=== PATIENT | male | born 1950 | race Caucasian/White ===

== ENCOUNTER 2018-05-15 16:16 | Emergency (ER) | payer MEDICARE, OTHER ==
[~2018-05-15] VITALS: Ht 190.5 cm; Wt 133.4 kg
[~2018-05-15 16:16] MED LIST: CRESTOR20 MG PO; LASIX20 MG PO; PEPCID20 MG PO; PLAVIX75 MG PO; PRINIVIL5 MG PO; SYNTHROID100 MCG PO
--- OUTSIDE RECORDS SUMMARY | 2018-05-15 16:19 | XMS REPORT | Clinical Summary ---
Author Author TAYLOR RadiantBlue TechnologiesSt. Luke'S Wood River Medical CenterTaxifySt. Joseph Medical Center Organization [facility] Address Unknown Phone Unavailable Care Team Providers Care Mechanical Design Drafter Name Role Phone Juancarlos Montiel MD PCP Allergies Comments Active Allergy Reactions Severity Noted Date suicidal thoughts Amitriptyline Other (See Medium 10/04/2017 Comments) Systemic reaction was sent to the ER Atorvastatin Other (See Medium 01/28/2018 Comments) Medications End Date Status Medication Sig Dispensed Refills Start Date Active metoprolol (TOPROL-XL) Take 100 mg 0 100 MG 24 hr tablet by mouth 2 (two) times daily . Active pantoprazole (PROTONIX) Take 40 mg by 0 40 MG tablet mouth daily. Active famotidine (PEPCID) 20 MG Take 20 mg by 0 tablet mouth 2 (two) times daily. Active rosuvastatin (CRESTOR) 20 Take 20 mg by 0 MG tablet mouth 4 (four) times a week . Active furosemide (LASIX) 20 MG Take 20 mg by 0 tablet mouth daily. Active levothyroxine (SYNTHROID, Take 100 mcg 0 LEVOTHROID) 100 MCG by mouth tablet daily. Active testosterone cypionate Inject 0 (DEPOTESTOTERONE intramuscular CYPIONATE) 100 mg/mL ly every 14 injection (fourteen) days. Active valsartan (DIOVAN) 320 MG Take 320 mg 0 tabletIndications: in by mouth afternoon daily. Active metFORMIN (GLUCOPHAGE) Take 1,000 mg 0 500 MG tablet by mouth daily with dinner . Active gabapentin (NEURONTIN) Take 300 mg 0 300 MG capsule by mouth every evening . Active albuterol (PROVENTIL) 2.5 Take 2.5 mg 0 mg /3 mL (0.083 %) by nebulizer solution nebulization every 6 (six) hours as needed for Wheezing. Active albuterol HFA (VENTOLIN Inhale 1 puff 0 HFA) 90 mcg/actuation by mouth via inhaler inhaler every 6 (six) hours as needed for Wheezing. Active cetirizine (ZYRTEC) 10 MG Take 10 mg by 0 tablet mouth as needed . Active fluticasone (FLONASE) 50 1 spray by 0 mcg/actuation nasal spray Nasal route as needed for Rhinitis. Active tamsulosin (FLOMAX) 0.4 Take 0.4 mg 0 mg Cap 24 hr capsule by mouth every other day. Active multivitamin per tablet Take 1 tablet 0 by mouth daily. Active melatonin 5 mg Tab tablet Take 5 mg by 0 mouth every night as needed . Active aspirin 81 MG EC tablet May resume 0 Wednesday05/17/18. Active clopidogrel (PLAVIX) 75 May resume 0 mg tablet Wednesday05/17/18. 05/21/2018 Active docusate sodium (COLACE) Take 1 20 capsule 0 100 MG capsule capsule (100 9 mg total) by mouth 2 (two) times daily as needed for Constipation for up to 10 days. 05/18/2018 Active butalbital-acetaminophen- Take 1 tablet 28 tablet 0 caffeine (FIORICET, by mouth 9 ESGIC) 50-325-40 mg per every 6 (six) tablet hours as needed for Headaches for up to 7 days. 05/18/2018 Active methocarbamol (ROBAXIN) Take 1 tablet 21 tablet 0 500 MG tablet (500 mg 9 total) by mouth 3 (three) times daily for 7 days. 01/28/2018 Discontinued lisinopril Take 20 mg by 0 (PRINIVIL,ZESTRIL) 20 MG mouth daily. tablet 02/08/2018 Discontinued clopidogrel (PLAVIX) 75 Take 75 mg by 0 mg tabletIndications: QOD mouth as only directed . 02/08/2018 Discontinued aspirin 81 MG EC tablet Take 81 mg by 0 mouth daily. 01/28/2018 Discontinued traMADol-acetaminophen Take 1 tablet 0 (ULTRACET) 37.5-325 mg by mouth per tablet every 6 (six) hours as needed. 02/18/2018 acetaminophen-codeine Take 2 60 tablet 0 (TYLENOL #3) 300-30 mg tablets by 9 per tablet mouth every 6 (six) hours as needed for up to 10 days. Max Daily Amount: 8 tablets 02/18/2018 docusate sodium (COLACE) Take 1 20 capsule 0 100 MG capsule capsule (100 9 mg total) by mouth 2 (two) times daily for 10 days. 02/18/2018 methocarbamol (ROBAXIN) Take 1 tablet 40 tablet 0 500 MG tablet (500 mg 9 total) by mouth 4 (four) times daily for 10 days. 05/10/2018 Discontinued metoprolol (TOPROL-XL) Take 100 mg 0 200 MG 24 hr tablet by mouth 2 (two) times daily Takes 0.5 tab BID . 05/11/2018 Discontinued clopidogrel (PLAVIX) 75 Take 75 mg by 0 mg tablet mouth daily. 05/11/2018 Discontinued aspirin 81 MG EC tablet Take 81 mg by 0 mouth daily. 05/11/2018 Discontinued oxyCODONE-acetaminophen Take 1 tablet 30 tablet 0 (PERCOCET) 10-325 mg per by mouth 9 tablet every 6 (six) hours as needed for up to 10 days. Max Daily Amount: 4 tablets Active Problems Problem Noted Date Lumbar radiculopathy 02/07/2018 Lumbar stenosis 02/07/2018 Resolved Problems Problem Noted Date Resolved Date Pre-op testing 05/10/2018 05/10/2018 Pre-op testing 02/07/2018 02/07/2018 Encounters Care Team Description Date Type Specialty 05/11/2018 Travel Colby Negro MD LAMINECTOMY,LUMBAR MIS 05/10/2018 Surgery Kristie Holcomb CRNA 05/10/2018 Anesthesia Event Colby Negro MD Pre-op testing 05/10/2018 [facility] General Internal Medicine - Encounter 05/12/2018 Colby Negro MD Resource, Oqmt Preadmit Phone 05/06/2018 Hospital Pre-Admission Testing Encounter Colby Negro MD Pre-op testing (Primary Dx) 05/05/2018 Orders Only Family Medicine 02/08/2018 Travel Colby Negro MD LAMINECTOMY,LUMBAR FACETECTOMY/ FORAMINOTOMY/ DECOMPRESSION 02/07/2018 Surgery Vesna Hood MD 02/07/2018 Anesthesia Event Colby Negro MD Pre-op testing 02/07/2018 Hospital General Internal Medicine - Encounter 02/08/2018 Essie, Oevon Preadmit Phone 01/28/2018 Hospital Pre-Admission Testing Encounter Colby Negro MD Pre-op testing (Primary Dx) 01/28/2018 Orders Only Family Medicine after 05/14/2017 Social History Date Tobacco Use Types Packs/Day Years Used Never Smoker Smokeless Tobacco: Never Used Alcohol Use Drinks/Week oz/Week Comments No Sex Assigned at Date Recorded Not on file Industry Job Start Date Occupation Not on file Not on file Not on file Travel End Travel History Travel Start No recent travel history available. Last Filed Vital Signs Time Taken Vital Sign Reading 05/12/2018 8:06 AM CDT Blood Pressure 133/61 05/12/2018 8:06 AM CDT Pulse 69 05/12/2018 8:06 AM CDT Temperature 36.7 C (98.1 F) 05/12/2018 8:06 AM CDT Respiratory Rate 18 05/12/2018 8:06 AM CDT Oxygen Saturation 92% 05/11/2018 12:00 AM CDT Inhaled Oxygen 21% Concentration 05/10/2018 5:45 AM CDT Weight 138.7 kg (305 lb 12.5 oz) 05/10/2018 5:45 AM CDT Height 191.8 cm (6' 3.5") 05/10/2018 5:45 AM CDT Body Mass Index 37.72 Plan of Treatment Not on file Implants Device Identifier Shelf Expiration Date Model / Serial / Lot Implanted Type Area Manufactur er 04/25/2019 [id number] / / [id number] Flseal Vhsd Full Strlprep 10ml Cement/Jesus N/A: Spine CEDILLO:BIO [id number] - [id number] ler/Adhesi Lumbar SCI Implanted: Qty: 1 on 02/07/2018 by Colby Rivera MD Procedures Comments Procedure Name Priority Date/Time Associated Diagnosis TRANSFUSION SERVICE 05/11/2018 REPORT - SCAN 6:01 PM CDT CBC W/PLT COUNT & AUTO Routine 05/11/2018 DIFFERENTIAL 12:55 PM CDT BASIC METABOLIC PANEL (7) Routine 05/11/2018 12:55 PM CDT CBC W/PLT COUNT & AUTO Routine 05/11/2018 DIFFERENTIAL 12:55 PM CDT POCT-GLUCOSE METER Routine 05/10/2018 10:09 AM CDT FL DIRECTOR OF AGRONOMY IN OR 30 Routine 05/10/2018 MINUTE INCREMENTS 9:50 AM CDT FL DIRECTOR OF AGRONOMY IN OR 30 Routine 05/10/2018 MINUTE INCREMENTS 8:20 AM CDT PROCEDURE W/ 05/10/2018 Spinal stenosis of lumbar INTRAOPERATIVE 7:15 AM CDT region, unspecified NEUROMONITORING whether neurogenic claudication present Case Notes 2 HRS PER ADDY Special Needs (PRONE POSITION, C-ARM, NEURO-REVA TORING: EMG, MICROSCOPE , REG OR TABLE, SHANA FRAME, MEDTRONIC) PROCEDURE W/ C-ARM 05/10/2018 Spinal stenosis of lumbar 7:15 AM CDT region, unspecified whether neurogenic claudication present Case Notes 2 HRS PER ADDY Special Needs (PRONE POSITION, C-ARM, NEURO-REVA TORING: EMG, MICROSCOPE , REG OR TABLE, SHANA FRAME, MEDTRONIC) LAMINECTOMY,LUMBAR MIS 05/10/2018 Spinal stenosis of lumbar 7:15 AM CDT region, unspecified whether neurogenic claudication present Case Notes 2 HRS PER ADDY Special Needs (PRONE POSITION, C-ARM, NEURO-REVA TORING: EMG, MICROSCOPE , REG OR TABLE, SHANA FRAME, MEDTRONIC) TYPE AND SCREEN, Routine 05/10/2018 Pre-op testing AUTOMATED 6:13 AM CDT POCT-GLUCOSE METER Routine 05/10/2018 6:13 AM CDT RHYTHM STRIP - SCAN 03/01/2018 10:50 AM TRANSPORTATION SALES CONSULTANT TRANSFUSION SERVICE 02/08/2018 REPORT - SCAN 6:00 PM TRANSPORTATION SALES CONSULTANT POCT-GLUCOSE METER Routine 02/08/2018 7:24 AM TRANSPORTATION SALES CONSULTANT BASIC METABOLIC PANEL (7) Routine 02/08/2018 6:39 AM TRANSPORTATION SALES CONSULTANT (CELLAVISION MANUAL DIFF) Routine 02/08/2018 5:30 AM TRANSPORTATION SALES CONSULTANT CBC W/PLT COUNT & AUTO Routine 02/08/2018 DIFFERENTIAL 5:30 AM TRANSPORTATION SALES CONSULTANT CBC W/PLT COUNT & AUTO Routine 02/08/2018 DIFFERENTIAL 5:30 AM TRANSPORTATION SALES CONSULTANT POCT-GLUCOSE METER Routine 02/07/2018 4:40 PM TRANSPORTATION SALES CONSULTANT POCT-GLUCOSE METER Routine 02/07/2018 11:08 AM TRANSPORTATION SALES CONSULTANT NEEDLE EMG, 2 EXTREMITY Routine 02/07/2018 10:25 AM TRANSPORTATION SALES CONSULTANT XR SPINE LUMBAR 1 VIEW Routine 02/07/2018 9:03 AM TRANSPORTATION SALES CONSULTANT PROCEDURE W/ C-ARM 02/07/2018 Radiculopathy, lumbar 8:00 AM TRANSPORTATION SALES CONSULTANT region Spinal stenosis of lumbar region, unspecified whether neurogenic claudication present Special Needs (PRONE POSITION, NEURO MONITORING :EMG, C-ARM, MICROSCOPE , REGULAR OR TABLE, SHANA FRAME, AQUAMANTYS , BOVIES X2, MISONIX BONE SCAPEL)(DR Kashmir CARR TO ASSIST) PROCEDURE W/ 02/07/2018 Radiculopathy, lumbar INTRAOPERATIVE 8:00 AM TRANSPORTATION SALES CONSULTANT region NEUROMONITORING Spinal stenosis of lumbar region, unspecified whether neurogenic claudication present Special Needs (PRONE POSITION, NEURO MONITORING :EMG, C-ARM, MICROSCOPE , REGULAR OR TABLE, SHANA FRAME, AQUAMANTYS , BOVIES X2, MISONIX BONE SCAPEL)(DR Kashmir CARR TO ASSIST) LAMINECTOMY,LUMBAR 02/07/2018 Radiculopathy, lumbar FACETECTOMY/ 8:00 AM TRANSPORTATION SALES CONSULTANT region FORAMINOTOMY/ Spinal stenosis of lumbar DECOMPRESSION region, unspecified whether neurogenic claudication present Special Needs (PRONE POSITION, NEURO MONITORING :EMG, C-ARM, MICROSCOPE , REGULAR OR TABLE, SHANA FRAME, AQUAMANTYS , BOVIES X2, MISONIX BONE SCAPEL)(DR Kashmir CARR TO ASSIST) POCT-GLUCOSE METER Routine 02/07/2018 7:17 AM TRANSPORTATION SALES CONSULTANT TYPE AND SCREEN, Routine 02/07/2018 Pre-op testing AUTOMATED 7:14 AM TRANSPORTATION SALES CONSULTANT after 05/14/2017 Results * TRANSFUSION SERVICE REPORT - SCAN (05/11/2018 6:01 PM CDT) Only the most recent of 2 results within the time period is included. Narrative Performed At * CBC with platelet count + automated diff (05/11/2018 12:55 PM CDT) Only the most recent of 2 results within the time period is included. WBC 14.0 (H) 3.5 - 10.5 K/L [facility] RBC 5.12 4.63 - 6.08 M/L [facility] Hemoglobin 12.9 (L) 13.7 - 17.5 GM/DL [facility] Hematocrit 42.3 40.1 - 51.0 % [facility] MCV 82.6 79.0 - 92.2 fL [facility] MCH 25.2 (L) 25.7 - 32.2 pg [facility] MCHC 30.5 (L) 32.3 - 36.5 GM/DL [facility] RDW 16.1 (H) 11.6 - 14.4 % [facility] Platelets 235 150 - 450 K/CU MM [facility] MPV 9.5 9.4 - 12.4 fL [facility] nRBC 0 0 - 0 /100 WBC [facility] % Neutros 70 % [facility] % Lymphs 11 % [facility] % Monos 19 % [facility] % Eos 1 % [facility] % Baso 0 % [facility] # Neutros 9.75 (H) 1.78 - 5.38 K/L [facility] # Lymphs 1.49 1.32 - 3.57 K/L [facility] # Monos 2.59 (H) 0.30 - 0.82 K/L [facility] # Eos 0.08 0.04 - 0.54 K/L [facility] # Baso 0.05 0.01 - 0.08 K/L [facility] Immature 0 0 - 1 % [facility] Granulocytes-Relative [facility] Specimen Blood - Arm, Right Performing Organization Address City/State/Zipcode Phone Number [facility] [address] [place] [address] [facility] * Basic Metabolic Panel (05/11/2018 12:55 PM CDT) Only the most recent of 2 results within the time period is included. Sodium 136 136 - 145 meq/L [facility] Potassium 4.4 3.5 - 5.1 meq/L [facility] Chloride 103 98 - 107 meq/L [facility] CO2 26 22 - 29 meq/L [facility] BUN 16 7 - 21 mg/dL [facility] Creatinine 1.12 0.57 - 1.25 mg/dL [facility] Glucose 157 (H) 70 - 105 mg/dL [facility] Calcium 9.1 8.4 - 10.2 mg/dL [facility] EGFR 65Comment: ESTIMATED GFR IS mL/min/1.73 sq m [facility] NOT ACCURATE CREATININE [facility] CLEARANCE IN PREDICTING GLOMERULAR FILTRATION RATE. ESTIMATED GFR IS NOT APPLICABLE FOR DIALYSIS PATIENTS. Specimen Blood - Arm, Right Performing Organization Address [facility] Phone Number [facility] [address] [place] [address] [facility] * POC-Glucose meter (05/10/2018 10:09 AM CDT) Only the most recent of 6 results within the time period is included. POC-Glucose Meter 184 (H)Comment: TESTED AT 70 - 110 mg/dL [facility] [address] [place] [id number] Specimen Blood Performing Organization Address City/State/Zipcode Phone Number [facility] [address] [address] [facility] * [place] radial drill operator for plastic in or 30 minute increments (05/10/2018 9:50 AM CDT) Only the most recent of 2 results within the time period is included. Narrative Performed At FINAL REPORT GE [facility] Fluoroscopic spot imaging was performed at the time of the procedure by the ordering service. This examination is nondiagnostic. Fluoroscopy was not performed by the undersigned, and the radiologist was not present at the time of examination. Interpretation of the images was not requested. Total fluoroscopy time: 4.7 seconds Total number of films: 2 Please refer to the referring physician's procedure report for complete detail. Signed: Zacarias Blanco MD Report Verified Date/Time:05/10/2018 12:40:24 Reading Location: [address] Consult Reading Room Procedure Note Interface, External Ris In - 05/10/2018 12:42 PM CDT FINAL REPORT Fluoroscopic spot imaging was performed at the time of the procedure by the ordering service. This examination is nondiagnostic. Fluoroscopy was not performed by the undersigned, and the radiologist was not present at the time of examination. Interpretation of the images was not requested. Total fluoroscopy time: 4.7 seconds Total number of films: 2 Please refer to the referring physician's procedure report for complete detail. Signed: Zacarias Blanco MD Report Verified Date/Time: 05/10/2018 12:40:24 Reading Location: [address] Consult Reading Room Performing Organization Address City/State/Zipcode Phone Number RIS * Type and screen, automated (05/10/2018 6:13 AM CDT) Only the most recent of 2 results within the time period is included. ABO/RH AUTOMATED (BEAKER) A POSITIVE [facility] Ab Scrn NEGATIVE [facility] Specimen Blood Performing Organization Address City/[facility]/Zipcode Phone Number [address] [address] [facility] * RHYTHM STRIP - SCAN (03/01/2018 10:50 AM TRANSPORTATION SALES CONSULTANT) Narrative Performed At * Manual Differential (02/08/2018 5:30 AM TRANSPORTATION SALES CONSULTANT) % Neutros 68 % [facility] % Lymphs 6 % [facility] % Monos 13 % [facility] % Eos 1 % [facility] % Bands 12 (H) 0 - 10 % [facility] # Neutros 7.89 (H) 1.78 - 5.38 K/ul [facility] # Lymphs 0.70 (L) 1.32 - 3.57 K/ul [facility] # Monos 1.51 (H) 0.30 - 0.82 K/uL [facility] # Eos 0.12 0.04 - 0.54 K/uL [facility] # Bands 1.39 (H) 0.00 - 0.80 K/uL [facility] Total Counted 100 [facility] WBC Morphology Normal [facility] Platelet Morphology Normal [facility] Polychromasia 1+ few [facility] Anisocytosis 1+ few [facility] Poikilocytes 1+ few [facility] Artifact Present [facility] Platelet Conc Adequate [facility] Specimen Blood Narrative Performed At Received comment: [facility] User comments: [facility] Slide comments: Performing Organization Address City/State/Zipcode Phone Number [facility] [address] [place] [address] [facility] * NEEDLE EMG, 2 EXTREMITY (02/07/2018 10:25 AM TRANSPORTATION SALES CONSULTANT) Narrative Performed At INTRAOPERATIVE MONITORING REPORT GE RIS Patient Name: Pettitte, Bandar [facility] Surgery Date: 02/07/2018 Pro: S/N - [id number] Monitoring began at 07:57 and ended at 10:25 Surgeon: Colby Negro M.D. Examining Neurologist: Romeo Mendez MD Monitoring Technologist: Alfonso Wolf CNIM Procedure: Posterior Lumbar Laminectomy L4-S1 Free-running EMG of the left and right Vastus Lateralis (L2-4), Tibialis Anterior (L4-5), and Lateral Gastrocnemius (L5-S2) muscle groups. Description : Intraoperative neurophysiological monitoring was performed using free-running EMG of L4-S2 innervated muscle groups. A real-time connection with the examining neurologist was established and maintained throughout the operative procedure by the monitoring technologist. Free-running EMG of L4-S2 innervated muscle group was monitored continuously throughout the operative procedure with no sustained neurotonic discharges seen. Conclusion : The absence of sustained neurotonic discharges on free-running EMG suggests that the nerve roots monitored remained undisturbed. Flory Mendez MD M68.061, M54.16 Procedure Note Interface, External Ris In - 02/07/2018 6:13 PM TRANSPORTATION SALES CONSULTANT INTRAOPERATIVE MONITORING REPORT Patient Name: Bandar Hernandez [facility] Surgery Date: 02/07/2018 Pro: S/N - [id number] Monitoring began at 07:57 and ended at 10:25 Surgeon: Colby Negro M.D. Examining Neurologist: Romeo Mendez MD Monitoring Technologist: Alfonso Wolf CNIM Procedure: Posterior Lumbar Laminectomy L4-S1 Free-running EMG of the left and right Vastus Lateralis (L2-4), Tibialis Anterior (L4-5), and Lateral Gastrocnemius (L5-S2) muscle groups. Description : Intraoperative neurophysiological monitoring was performed using free-running EMG of L4-S2 innervated muscle groups. A real-time connection with the examining neurologist was established and maintained throughout the operative procedure by the monitoring technologist. Free-running EMG of L4-S2 innervated muscle group was monitored continuously throughout the operative procedure with no sustained neurotonic discharges seen. Conclusion : The absence of sustained neurotonic discharges on free-running EMG suggests that the nerve roots monitored remained undisturbed. Flory Mendez MD M68.061, M54.16 Performing Organization Address City/State/Zipcode Phone Number GE [facility] * XR spine lumbar 1 view (02/07/2018 9:03 AM TRANSPORTATION SALES CONSULTANT) Narrative Performed At FINAL REPORT [facility] Radiograph of the lumbar spine Indication: PAIN Comparison: none Findings: A single lateral view of the lumbarspine is obtained intraoperatively. Please remove projects over the L5-S1 facet. Results were discussed with Dr. Negro , who concurred with the above findings. Signed: Chastity Malagon MD Report Verified Date/Time:02/07/2018 09:04:56 Reading Location: [facility] Radiology Reading Room Procedure Note Interface, External Ris In - 02/07/2018 9:18 AM TRANSPORTATION SALES CONSULTANT FINAL REPORT Radiograph of the lumbar spine Indication: PAIN Comparison: none Findings: A single lateral view of the lumbar spine is obtained intraoperatively. Please remove projects over the L5-S1 facet. Results were discussed with Dr. Negro , who concurred with the above findings. Signed: Chastity Malagon MD Report Verified Date/Time: 02/07/2018 09:04:56 Reading Location: [facility] Radiology Reading Room Performing Organization Address City/[facility] Phone Number [facility] after 05/14/2017 Insurance Payer Benefit Subscriber ID Type Phone Address Plan / Group [facility] xxxxxxxxxxx MEDICARE ADV Advance Directives For more information, please contact: [address] [address] Date Inactivated Comments Code Status Date Activated 05/12/2018 4:45 PM Full Code 05/10/2018 5:40 AM This code status was determined by: Patient 05/10/2018 5:23 AM Full Code 02/07/2018 7:05 AM This code status was determined by: Patient
--- OUTSIDE RECORDS SUMMARY | 2018-05-15 16:19 | XMS REPORT ---
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 Allergies, Adverse Reactions, Alerts This patient has no known allergies or adverse reactions. Medications This patient has no known medications. Results Test Description Test Time Test Comments Text Results Atomic Results Result Comments CBC W/PLT COUNT & AUTO DIFFERENTIAL 2018-05-11 15:27:00 WHITE BLOOD CELL COUNT (BEAKER) (test jdyl=520) 14.0 K/ L 3.5-10.5 RED BLOOD CELL COUNT (BEAKER) (test csij=614) 5.12 M/ L 4.63-6.08 HEMOGLOBIN (BEAKER) (test himk=465) 12.9 GM/DL 13.7-17.5 HEMATOCRIT (BEAKER) (test ywkm=698) 42.3 % 40.1-51.0 MEAN CORPUSCULAR VOLUME (BEAKER) (test rzsf=927) 82.6 fL 79.0-92.2 MEAN CORPUSCULAR HEMOGLOBIN (BEAKER) (test utkk=475) 25.2 pg 25.7-32.2 MEAN CORPUSCULAR HEMOGLOBIN CONC (BEAKER) (test uphw=224) 30.5 GM/DL 32.3-36.5 RED CELL DISTRIBUTION WIDTH (BEAKER) (test zvhk=010) 16.1 % 11.6-14.4 PLATELET COUNT (BEAKER) (test gcui=994) 235 K/CU MM 150-450 MEAN PLATELET VOLUME (BEAKER) (test nxnc=068) 9.5 fL 9.4-12.4 NUCLEATED RED BLOOD CELLS (BEAKER) (test tdse=089) 0 /100 WBC 0-0 NEUTROPHILS RELATIVE PERCENT (BEAKER) (test ahre=127) 70 % LYMPHOCYTES RELATIVE PERCENT (BEAKER) (test xqqo=495) 11 % MONOCYTES RELATIVE PERCENT (BEAKER) (test kleo=291) 19 % EOSINOPHILS RELATIVE PERCENT (BEAKER) (test jhjs=957) 1 % BASOPHILS RELATIVE PERCENT (BEAKER) (test btlv=439) 0 % NEUTROPHILS ABSOLUTE COUNT (BEAKER) (test cksy=296) 9.75 K/ L 1.78-5.38 LYMPHOCYTES ABSOLUTE COUNT (BEAKER) (test bmnf=230) 1.49 K/ L 1.32-3.57 MONOCYTES ABSOLUTE COUNT (BEAKER) (test ywgo=485) 2.59 K/ L 0.30-0.82 EOSINOPHILS ABSOLUTE COUNT (BEAKER) (test lrrf=220) 0.08 K/ L 0.04-0.54 BASOPHILS ABSOLUTE COUNT (BEAKER) (test uydt=204) 0.05 K/ L 0.01-0.08 IMMATURE GRANULOCYTES-RELATIVE PERCENT (BEAKER) (test hbzy=1264) 0 % 0-1 BASIC METABOLIC [id number] 13:29:00* Test Item Value Reference Range Comments SODIUM (BEAKER) (test ylfw=611) 136 meq/L 136-145 POTASSIUM (BEAKER) (test spvq=172) 4.4 meq/L 3.5-5.1 CHLORIDE (BEAKER) (test doan=346) 103 meq/L 98-107 CO2 (BEAKER) (test xhwy=600) 26 meq/L 22-29 BLOOD UREA NITROGEN (BEAKER) (test agme=525) 16 mg/dL 7-21 CREATININE (BEAKER) (test dgin=037) 1.12 mg/dL 0.57-1.25 GLUCOSE RANDOM (BEAKER) (test jxjn=019) 157 mg/dL 70-105 CALCIUM (BEAKER) (test vewa=877) 9.1 mg/dL 8.4-10.2 EGFR (BEAKER) (test idpu=2118) 65 mL/min/1.73 sq m ESTIMATED GFR IS NOT ACCURATE CREATININE CLEARANCE IN PREDICTING GLOMERULAR FILTRATION RATE. ESTIMATED GFR IS NOT APPLICABLE FOR DIALYSIS PATIENTS. [place], [employer] IN OR/30 MINUTE [id number] 12:40:00Reason for exam:-> lumbar radiculopathyFINAL REPORT Fluoroscopic spot imaging was performed at [...] report for complete detail. Signed: Zacarias Blanco Verified Date/Time: 05/10/2018 12:40:24 Reading Location: [facility] C0[facility] Consult Reading Room , [employer] IN OR/30 MINUTE [id number] 12:39:00Reason for exam:->lumbar radiculopathyFINAL REPORT Fluoroscopic spot imaging was performed at the time of the procedure by the ordering service. This examination is nondiagnostic. Fluoroscopy was not performed by the undersigned, and the radiologist was not present at the time of examination. Interpretation of the images was not requested. Total fluoroscopy time: 6.6 seconds Total number of films: 1 Please refer to the referring physician's procedure report for complete detail. Signed: Zacarias Blanco Verified Date/Time: 05/10/2018 12:39:02 Reading Location: [address] Consult Reading Room -GLUCOSE [id number] 10:12:00* Test Item Value Reference Range Comments POC-GLUCOSE METER (BEAKER) (test hemh=6519) 184 mg/dL 70-110 TESTED AT [facility] [address] [address] POCT-GLUCOSE [id number] 06:19:00* Test Item Value Reference Range Comments POC-GLUCOSE METER (BEAKER) (test sgaz=3062) 144 mg/dL 70-110 TESTED AT [address] [address] CBC W/PLT COUNT & AUTO [id number] 12:55:00* Test Item Value Reference Range Comments WHITE BLOOD CELL COUNT (BEAKER) (test cknk=878) 11.6 K/ L 3.5-10.5 RED BLOOD CELL COUNT (BEAKER) (test hmtf=283) 4.77 M/ L 4.63-6.08 HEMOGLOBIN (BEAKER) (test uvvf=324) 12.3 GM/DL 13.7-17.5 HEMATOCRIT (BEAKER) (test kftx=255) 39.7 % 40.1-51.0 MEAN CORPUSCULAR VOLUME (BEAKER) (test tjfh=922) 83.2 fL 79.0-92.2 MEAN CORPUSCULAR HEMOGLOBIN (BEAKER) (test hzic=549) 25.8 pg 25.7-32.2 MEAN CORPUSCULAR HEMOGLOBIN CONC (BEAKER) (test mvwy=499) 31.0 GM/DL 32.3-36.5 RED CELL DISTRIBUTION WIDTH (BEAKER) (test egnd=505) 15.3 % 11.6-14.4 PLATELET COUNT (BEAKER) (test hgtx=601) 216 K/CU MM 150-450 MEAN PLATELET VOLUME (BEAKER) (test rqua=880) 9.8 fL 9.4-12.4 NUCLEATED RED BLOOD CELLS (BEAKER) (test vfdi=921) 0 /100 WBC 0-0 (CELLAVISION MANUAL DIFF)2018-02-08 12:55:00* Test Item Value Reference Range Comments NEUTROPHILS - REL (CELLAVISION)(BEAKER) (test vknn=5058) 68 % LYMPHOCYTES - REL (CELLAVISION)(BEAKER) (test gwtz=9707) 6 % MONOCYTES - REL (CELLAVISION)(BEAKER) (test apby=4626) 13 % EOSINOPHILS - REL (CELLAVISION)(BEAKER) (test chuh=4433) 1 % BANDS - REL (CELLAVISION)(BEAKER) (test bmcq=0608) 12 % 0-10 NEUTROPHILS - ABS (CELLAVISION)(BEAKER) (test lqcn=2920) 7.89 K/ul 1.78-5.38 LYMPHOCYTES - ABS (CELLAVISION)(BEAKER) (test mbpo=0344) 0.70 K/ul 1.32-3.57 MONOCYTES - ABS (CELLAVISION)(BEAKER) (test nufm=3911) 1.51 K/uL 0.30-0.82 EOSINOPHILS - ABS (CELLAVISION)(BEAKER) (test qmww=9988) 0.12 K/uL 0.04-0.54 BANDS - ABS (CELLAVISION)(BEAKER) (test csdy=5515) 1.39 K/uL 0.00-0.80 TOTAL COUNTED (BEAKER) (test infu=5011) 100 WBC MORPHOLOGY (BEAKER) (test phgs=696) Normal PLT MORPHOLOGY (BEAKER) (test viru=093) Normal POLYCHROMATOPHILLIC RBCS(BEAKER) (test wxot=760) 1+ few ANISOCYTOSIS (BEAKER) (test mzgw=147) 1+ few POIKILOCYTES (BEAKER) (test xilq=383) 1+ few ARTIFACT (CELLAVISION)(BEAKER) (test jxcp=4056) Present PLATELET CONCENTRATION (CELLAVISION)(BEAKER) (test vsgm=0084) Adequate Received comment: User comments: Slide comments: POCT-GLUCOSE [id number] 08:13:00* Test Item Value Reference Range Comments POC-GLUCOSE METER (BEAKER) (test vawb=3414) 167 mg/dL 70-110 TESTED AT [facility] [address] [address] BASIC METABOLIC [id number] 06:39:00* Test Item Value Reference Range Comments SODIUM (BEAKER) (test qkrl=738) 136 meq/L 136-145 POTASSIUM (BEAKER) (test qdkl=456) 4.1 meq/L 3.5-5.1 CHLORIDE (BEAKER) (test xzov=624) 105 meq/L 98-107 CO2 (BEAKER) (test ejoo=856) 24 meq/L 22-29 BLOOD UREA NITROGEN (BEAKER) (test onor=413) 12 mg/dL 7-21 CREATININE (BEAKER) (test qndh=516) 0.90 mg/dL 0.57-1.25 GLUCOSE RANDOM (BEAKER) (test cjit=239) 144 mg/dL 70-105 CALCIUM (BEAKER) (test mfyl=999) 8.8 mg/dL 8.4-10.2 EGFR (BEAKER) (test nvig=2511) 84 mL/min/1.73 sq m ESTIMATED GFR IS NOT ACCURATE CREATININE CLEARANCE IN PREDICTING GLOMERULAR FILTRATION RATE. ESTIMATED GFR IS NOT APPLICABLE FOR DIALYSIS PATIENTS. TIFFANIE EMG, 2 [id number] 18:13:00INTRAOPERATIVE MONITORING REPORT Patient Name: Bandar Mcdonald [facility] Surgery Date: 02/07/2018 Pro: S/N - [id number] Monitoring began at 07:57 and ended at 10:25 Surgeon: Colby Crouch M.D. Examining Neurologist: Romeo Mendez MD Monitoring Technologist: Alfonso Wolf, JENNIFER Procedure: Posterior Lumbar Laminectomy L4-S1 Free-running EMG of the left and right Vastus Lateralis (L2- 4), Tibialis Anterior (L4-5), and Lateral Gastrocnemius (L5-S2) [...] remained undisturbed. Flory Mendez MD M68.061, M54.16 -GLUCOSE [id number] 16:57:00* Test Item Value Reference Range Comments POC-GLUCOSE METER (BEAKER) (test srtx=3498) 242 mg/dL 70-110 TESTED AT [facility] [address] [address] POCT-GLUCOSE [id number] 11:10:00* Test Item Value Reference Range Comments POC-GLUCOSE METER (BEAKER) (test vysa=4584) 187 mg/dL 70-110 TESTED AT [facility] [address] [address] RAD, SPINE, LUMBAR, 1 [id number] 09:04:00Reason for exam:->PAINFINAL REPORT Radiograph of the lumbar spine Indication: PAIN Comparison: none Findings: A single lateral view of the lumbar spine is ob tained intraoperatively. Please remove projects over the L5-S1 facet. Results we re discussed with Dr. Crouch , who concurred with the above findings. Signed: Clarisse Cohen Verified Date/Time: 02/07/2018 09:04:56 Reading Location: [facility] Reading Room -GLUCOSE [id number] 07:18:00* Test Item Value Reference Range Comments POC-GLUCOSE METER (NUNULAUREN) (test sclm=0350) 154 mg/dL 70-110 TESTED AT [facility] [address] [address]
[2018-05-15] MEDS ORDERED: CHLORPROMAZINE HCL INJ 25 MG/ML AMP INJ NR ×2 (16:45→19:00)
[2018-05-15 17:18] LABS: BASOPHILS % 0.6 % (0.0-1.0); EOSINOPHILS # (AUTO) 0.3 (0.0-0.4); EOSINOPHILS % 4.4 % (0.0-6.0); HEMATOCRIT 43.6 % (38.2-49.6); HEMOGLOBIN 13.4 g/dL (14.0-18.0); LYMPHOCYTES # (AUTO) 1.3 (1.0-3.2); LYMPHOCYTES % 18.7 % (18.0-39.1); MEAN CORPUSCULAR HEMOGLOBIN 24.8 pg (28-32); MEAN CORPUSCULAR HGB CONC 30.7 g/dL (31-35); MEAN CORPUSCULAR VOLUME 80.7 fL (81-99); MONOCYTES # (AUTO) 0.9 (0.2-0.8); MONOCYTES % 12.6 % (4.4-11.3); NEUTROPHILS # (AUTO) 4.5 (2.1-6.9); NEUTROPHILS % 63.3 % (38.7-80.0); PLATELET COUNT 305 x10e3/uL (140-360); RED CELL DISTRIBUTION WIDTH 15.9 % (11.7-14.4)
[2018-05-15 17:35] LABS: ALANINE AMINOTRANSFERASE 88 IU/L (0-55); ALBUMIN 3.4 g/dL (3.5-5.0); ALBUMIN/GLOBULIN RATIO 0.8 (0.8-2.0); ALKALINE PHOSPHATASE 85 IU/L (40-150); ANION GAP 12.9 mmol/L (8-16); BLOOD UREA NITROGEN 10 mg/dL (7-26); BUN/CREATININE RATIO 10 (6-25); CALCIUM 9.5 mg/dL (8.4-10.2); CARBON DIOXIDE 27 mmol/L (22-29); CHLORIDE 102 mmol/L (98-107); CREATINE KINASE 143 IU/L (30-200); CREATININE, SERUM 1.04 mg/dL (0.72-1.25); EST GLOMERULAR FILTRATION RATE > 60 ML/MIN (60-); GLUCOSE 170 mg/dL (74-118); POTASSIUM 3.9 mmol/L (3.5-5.1); SODIUM 138 mmol/L (136-145)
--- NOTE | 2018-05-15 17:45 | NUR ---
PATIENT STATES THE HICCUPS HAS STOPPED AFTER MEDICATION. NO SIGNS OF ACUTE DISTRESS NOTED AT THIS TIME. DENIES ANY C/O AT THIS TIME.
--- NOTE | 2018-05-15 18:50 | NUR ---
C/O HICCUPS RETURNED. NOTIFIED DR CARY. NO SIGNS OF ACUTE DISTRESS NOTED AT THIS TIME.
[2018-05-15 19:02] VITALS: BP 135/72
== END 2018-05-15 19:15 | disposition home or self-care (01) ==
LOC: ER 16:16
DX: R06.6 Hiccough (principal); I10 Essential (primary) hypertension; E11.9 Type 2 diabetes mellitus without complications; I48.91 Unspecified atrial fibrillation
CPT/HCPCS: 36415; 80053; 82550; 82553; 84484; 85025; 93005; 99283; J3230